=== PATIENT | female | born 1955 | race Caucasian/White ===

== ENCOUNTER 2016-12-24 09:53 | Emergency (ER) | payer SELFPAY ==
[~2016-12-24] VITALS: Ht 152.4 cm; Wt 81.6 kg
[2016-12-24] MEDS ORDERED: ACETAMINOPHEN 325 MG TABLET PO ONE (10:00)
[2016-12-24] MEDS ORDERED: IV NS 0.9% 500 ML BAG IV ONE (10:00)
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
[2016-12-24] MEDS ORDERED: ACETAMINOPHEN 325 MG TABLET ONE (10:18)
--- NOTE | 2016-12-24 10:20 | NUR ---
Medicated as ordered, will continue to monitor.
[2016-12-24 10:31] LABS: BASOPHILS % (AUTO) 0.3 % (0.0-2.0); EOSINOPHILS # (AUTO) 0.1 /CMM (0.0-0.7); EOSINOPHILS % (AUTO) 2.4 % (0.0-6.0); HEMATOCRIT 37 % (33-45); HEMOGLOBIN 12.1 g/dL (11.5-14.8); MEAN CORPUSCULAR HEMOGLOBIN 29 PG (26.0-33.0); MEAN CORPUSCULAR HGB CONC 33 g/dl (31.0-36.0); MEAN CORPUSCULAR VOLUME 89 fL (82-100); MONOCYTES # (AUTO) 0.4 /CMM (0.1-1.30); NEUTROPHILS # (AUTO) 3.2 /CMM (1.8-8.9); NEUTROPHILS % (AUTO) 55.3 % (43.0-81.0); PLATELET COUNT (AUTO) 255 /CMM (150-450); RDW COEFFICIENT OF VARIATION 14.4 (11.5-15.0); RED BLOOD CELL COUNT(AUTO) 4.12 MIL/uL (4.0-5.2); WHITE BLOOD COUNT (AUTO) 5.8 K/uL (4.3-11.0)
[2016-12-24 10:52] LABS: CALCIUM, SERUM 9.5 mg/dL (8.5-10.1); CREATININE 0.9 mg/dL (0.6-1.3); POTASSIUM 3.8 mmol/L (3.5-5.1)
[2016-12-24] MEDS ORDERED: CT SWABBABLE VALVE TRANS SET 1 EA INFUS.SET MC ONE (11:00)
[2016-12-24] MEDS ORDERED: IOHEXOL-300 100 ML VIAL IV ONE (11:00)
[2016-12-24] MEDS ORDERED: IV NS 0.9% 250 ML IV ONE (11:00)
--- NOTE | 2016-12-24 11:50 | NUR ---
WOUND CLEANED AND NEOSPORIN PLACED
--- NOTE | 2016-12-24 12:01 | NUR ---
PT. VERBALIZED UNDERSTANDING OF AFTERCARE INSTRUCTIONS.Patient discharged to home in stable condition. Written and verbal after care instructions given. Patient verbalizes understanding of instruction.
[2016-12-24 12:02] VITALS: BP 168/98
== END 2016-12-24 12:03 | disposition home or self-care (01) ==
LOC: ER 09:55
DX: S30.1XXA Contusion of abdominal wall, initial encounter (principal); S60.221A Contusion of right hand, initial encounter; E11.9 Type 2 diabetes mellitus without complications; I10 Essential (primary) hypertension; V49.49XA Driver injured in collision with other motor vehicles in traffic accident, initial encounter; Y93.89 Activity, other specified; Y92.89 Other specified places as the place of occurrence of the external cause; Y99.8 Other external cause status
CPT/HCPCS: 36415; 71010; 73130; 74160; 80048; 85025; 96360; 99285; A4606; J7040; J7050; Q9967; Z7610